=== PATIENT | male | born 1990 | race Two or more races ===

== ENCOUNTER 2018-10-01 21:35 | Emergency (ER) | payer MEDICAID ==
[~2018-10-01] VITALS: Ht 177.8 cm; Wt 93.0 kg
--- NOTE | 2018-10-01 21:49 | NUR ---
[facility]IB[facility] 39 ALCOHOL INTOXICATION FROM THE STREETS, -SI. AWAKE AND ALERT. SKIN INTACT, NO ACUTE DISTRESS NOTED. READY FOR EVAL.
--- NOTE | 2018-10-02 01:12 | NUR ---
PT SLEEPING COMFORTABLE. V/S STABLE. NO RESPIRATORY DISTRESS NOTED.
--- NOTE | 2018-10-02 04:42 | NUR ---
PT AWAKE,, A/OX4. WENT TO THE BATHROOM ON HIS OWN.
--- NOTE | 2018-10-02 04:44 | NUR ---
PT MOTHER (MEGAN) [phone]
--- NOTE | 2018-10-02 06:05 | NUR ---
CALLED MEGAN , PER PT MOM, SHES GOING TO [employer] HER SON IN AN HOUR,
--- NOTE | 2018-10-02 06:51 | NUR ---
PT IS AAOX4, AMBULATORY W/ STEADY GAIT AND TALKING TO MOTHER. INSIST THAT HE WILL SMOKE AND WILL WAIT FOR MOTHER AT THE WAITING ROOM. SPOKE TO MOTHER AND STATES SHE IS OK FOR FOR SON TO WAIT IN THE WAITING ROOM. PT D/C IN STABLE CONDITION.
[2018-10-02 06:53] VITALS: BP 132/84
== END 2018-10-02 06:58 | disposition home or self-care (01) ==
LOC: ER 21:36
DX: F10.129 Alcohol abuse with intoxication, unspecified (principal); F17.200 Nicotine dependence, unspecified, uncomplicated; Z59.0 Homelessness; Y90.9 Presence of alcohol in blood, level not specified
CPT/HCPCS: 71045-TC

== ENCOUNTER 2018-10-02 07:58 | Emergency (ER) | payer MEDICAID ==
[~2018-10-02] VITALS: Ht 172.7 cm; Wt 93.0 kg
--- NOTE | 2018-10-02 08:20 | NUR ---
PATIENT ARRIVED AT UNIT AMBULATORY. STATING HE DOESNT FEEL RIGHT. VERBALIZED HE HAD VODKA LAST NIGHT APPROXIMATELY 4 SMALL BOTTLES. NO ACUTE DISTRESS. AWAITING
--- NOTE | 2018-10-02 08:20 | NUR ---
DR KEYS AT BEDSIDE
[2018-10-02] MEDS ORDERED: LORAZEPAM INJ 2 MG/ML VIAL IV ONE (08:30)
[2018-10-02] MEDS ORDERED: IV NS 0.9% 1,000 ML BAG IV ONE (08:30)
[2018-10-02 08:36] LABS: BASOPHILS % (AUTO) 0.8 % (0.0-2.0); EOSINOPHILS % (AUTO) 0.8 % (0.0-6.0); HEMATOCRIT 45 % (39-51); HEMOGLOBIN 15.4 g/dL (13.5-17.5); LYMPHOCYTES # (AUTO) 1.5 /CMM (0.8-4.8); LYMPHOCYTES % (AUTO) 26.2 % (20.0-44.0); MEAN CORPUSCULAR HGB CONC 35 g/dl (31.0-36.0); MEAN CORPUSCULAR VOLUME 97 fL (80-96); MONOCYTES # (AUTO) 0.6 /CMM (0.1-1.30); NEUTROPHILS # (AUTO) 3.5 /CMM (1.8-8.9); NEUTROPHILS % (AUTO) 62.2 % (43.0-81.0); PLATELET COUNT (AUTO) 304 /CMM (150-450); RED BLOOD CELL COUNT(AUTO) 4.58 MIL/uL (4.5-6.0); WHITE BLOOD COUNT (AUTO) 5.6 K/uL (4.3-11.0)
[2018-10-02] MEDS ORDERED: LORAZEPAM INJ 2 MG/ML VIAL ONE (08:37)
[2018-10-02 08:44] LABS: CALCIUM, SERUM 9.3 mg/dL (8.5-10.1); CREATININE 0.8 mg/dL (0.6-1.3); POTASSIUM 4.1 mmol/L (3.5-5.1)
--- NOTE | 2018-10-02 09:48 | NUR ---
Patient discharged to home in stable condition. Written and verbal after care instructions given. Patient verbalizes understanding of instruction. written prescription given to patient
[2018-10-02 09:49] VITALS: BP 142/87
== END 2018-10-02 09:49 | disposition home or self-care (01) ==
LOC: ER 07:59
DX: F10.239 Alcohol dependence with withdrawal, unspecified (principal); R11.10 Vomiting, unspecified; F17.200 Nicotine dependence, unspecified, uncomplicated; Y90.9 Presence of alcohol in blood, level not specified; Z59.0 Homelessness
CPT/HCPCS: 36415; 80048; 85025; 96361; 96374; 99283; J2060; J7030